=== PATIENT | female | born 1935 | race Caucasian/White ===

== ENCOUNTER 2017-12-21 11:40 | Day surgery (SDC) | payer MEDICARE, OTHER ==
[~2017-12-21] VITALS: Ht 152.4 cm; Wt 86.7 kg
[~2017-12-21 11:40] MED LIST: ALBU90OI6 INH; ALBU90OI61 INH; ALPR.25 PO; ALTACE; ANORO ELLIPTA1 EACH; BENAML10/5 PO; BUDE6HFA INH; CALCIT950 PO; CALCIUM 600 MG1 EACH; Colace100 MG PO; Cyclobenzaprine5 MG PO; DIAZ5 PO; DIAZIDE; DOCU100 PO; ESCI10 PO; FISH OIL; FISH1000 PO; FLAXSEED340 GM; Ferrous Sulfat325 MG PO; Ginger250 MG; HYDACE5 PO; HYDR1TAB94 PO; LEVSOD50; LOPE2C PO; LOSA50 PO; MECL25 PO; MULVITMIND PO; OXYACE5T PO; PROM25 PO; RXHYDACE PO; SPIR25; TORSE20; TRAZ50 PO; TRIHYD253A PO; TRIHYD253B PO; WARF4 PO; WARF5 PO; [UNRECOGNIZED DRUG - CODE]
== END 2017-12-21 14:00 | disposition home or self-care (01) ==
LOC: ORSCSDS 11:40
PROVIDERS: Internal Medicine Gastroenterology
PROC: 0DB58ZX Excision of Esophagus, Via Natural or Artificial Opening Endoscopic, Diagnostic (ICD-10-PCS; principal; 2017-12-21 13:00)
DX: K22.70 Barrett's esophagus without dysplasia (principal); K44.9 Diaphragmatic hernia without obstruction or gangrene; K22.2 Esophageal obstruction; G47.33 Obstructive sleep apnea (adult) (pediatric); J44.9 Chronic obstructive pulmonary disease, unspecified; E03.9 Hypothyroidism, unspecified; E78.5 Hyperlipidemia, unspecified; F41.8 Other specified anxiety disorders; I10 Essential (primary) hypertension; Z86.718 Personal history of other venous thrombosis and embolism; Z79.01 Long term (current) use of anticoagulants; Z79.899 Other long term (current) drug therapy; E66.9 Obesity, unspecified; Z68.36 Body mass index [BMI] 36.0-36.9, adult
CPT/HCPCS: 88305; J7120

== ENCOUNTER → 2018-03-21 | Outpatient (CLI) | payer MEDICARE, OTHER ==
[2018-03-21 12:31] LABS: BASOPHILS ABSOLUTE AUTO 0.03 K/mm3 (0.00-0.23); BASOPHILS PERCENT AUTO 1 % (0-2); EOSINOPHILS ABSOLUTE AUTO 0.11 K/mm3 (0.00-0.68); EOSINOPHILS PERCENT AUTO 2 % (0-6); Hematocrit 39.6 % (33.0-51.0); Hemoglobin 13.3 g/dL (11.5-16.0); IMMATURE GRAN ABSOLUTE AUTO 0.01 K/mm3 (0.00-0.10); IMMATURE GRAN PERCENT AUTO 0 % (0-1); LYMPHOCYTES ABSOLUTE AUTO 1.82 K/mm3 (0.84-5.20); LYMPHOCYTES PERCENT AUTO 29 % (21-46); MONOCYTES ABSOLUTE AUTO 0.67 K/mm3 (0.16-1.47); MONOCYTES PERCENT AUTO 11 % (4-13); Mean Corpuscular HGB 29.6 pg (26.0-34.0); Mean Corpuscular HGB Conc 33.6 g/dL (31.5-36.5); Mean Corpuscular Volume 88 fL (80-100); Mean Platelet Volume 9.4 fL (9.1-12.4); NEUTROPHILS ABSOLUTE AUTO 3.69 K/mm3 (1.96-9.15); NEUTROPHILS PERCENT AUTO 58 % (41-73); Platelet Count 378 K/mm3 (150-400); RDW Coefficient Variation 14.7 % (11.7-14.2); RDW Standard Deviation 46.9 fL (35.1-46.3); Red Blood Cell Count 4.49 M/mm3 (3.80-5.20); White Blood Cell Count 6.33 K/mm3 (4.00-11.30)
[2018-03-21 12:44] LABS: Alanine Aminotransfer (ALT/SGP 24 U/L (12-78); Albumin, Blood 3.5 g/dL (3.4-5.0); Albumin/Globulin Ratio 0.9 (0.8-1.8); Alk Phos 74 U/L (40-126); Anion Gap 8 mmol/L (6-16); Aspartate Aminotrans (AST/SGOT 25 U/L (12-37); Bilirubin, Total 0.7 mg/dL (0.1-1.0); Blood Urea Nitrogen 18 mg/dL (8-24); CO2, Blood 32 mmol/L (21-32); Calcium, Blood 8.7 mg/dL (8.5-10.1); Chloride, Blood 102 mmol/L (98-108); Glomerular Filtration Rate >60 (60-); Glucose, Blood 94 mg/dL (70-99); Potassium, Blood 3.3 mmol/L (3.5-5.5); Sodium, Blood 142 mmol/L (136-145); Total Protein, Blood 7.5 g/dL (6.4-8.2)
[2018-03-21 13:02] LABS: International Normalized Ratio 2.06; Prothrombin Time Results 21.9 Sec (9.7-11.5)
== END | disposition home or self-care (01) ==
LOC: LAB EV 12:24 → LAB SHORT 12:24
PROVIDERS: Family Medicine
DX: K92.2 Gastrointestinal hemorrhage, unspecified (principal); Z86.718 Personal history of other venous thrombosis and embolism
CPT/HCPCS: 80053; 85025; 85610

== ENCOUNTER → 2018-05-08 | Outpatient (CLI) | payer MEDICARE, OTHER ==
[2018-05-08 11:33] LABS: Stool Occult Bld Immuno 1 Negative (NEGATIVE); Stool Occult Bld Immuno 2 Negative (NEGATIVE)
== END | disposition home or self-care (01) ==
LOC: LAB 08:25 → LAB FUT 04-21 14:10
PROVIDERS: Internal Medicine Gastroenterology
DX: K92.1 Melena (principal); Z86.010 Personal history of colon polyps
CPT/HCPCS: 82274

== ENCOUNTER 2019-08-04 08:21 | Emergency (ER) | payer MEDICARE ==
[~2019-08-04] VITALS: Ht 152.4 cm; Wt 78.9 kg
[2019-08-04 08:46] LABS: Source, Urine Clean Catch
[2019-08-04 08:51] LABS: Bilirubin, Urine Neg (Neg); Blood, Urine 5+ (Neg); Color, Urine Red (P-Yellow); Glucose Qualitative, Urine Neg (Neg); Ketones, Urine 1+ (Neg); Leukocyte Esterase, Urine 3+ (Neg); Nitrite, Urine Neg (Neg); Protein, Urine 3+ (Neg); Urobilinogen, Urine NORM (Normal)
[2019-08-04 09:02] LABS: BASOPHILS ABSOLUTE AUTO 0.03 K/mm3 (0.00-0.23); BASOPHILS PERCENT AUTO 0 % (0-2); EOSINOPHILS ABSOLUTE AUTO 0.13 K/mm3 (0.00-0.68); EOSINOPHILS PERCENT AUTO 2 % (0-6); Hematocrit 43.6 % (33.0-51.0); Hemoglobin 14.8 g/dL (11.5-16.0); IMMATURE GRAN ABSOLUTE AUTO 0.04 K/mm3 (0.00-0.10); IMMATURE GRAN PERCENT AUTO 1 % (0-1); LYMPHOCYTES PERCENT AUTO 15 % (21-46); MONOCYTES ABSOLUTE AUTO 1.04 K/mm3 (0.16-1.47); MONOCYTES PERCENT AUTO 13 % (4-13); Mean Corpuscular HGB 31.2 pg (26.0-34.0); Mean Corpuscular HGB Conc 33.9 g/dL (31.5-36.5); Mean Corpuscular Volume 92 fL (80-100); Mean Platelet Volume 8.8 fL (9.1-12.4); NEUTROPHILS ABSOLUTE AUTO 5.85 K/mm3 (1.96-9.15); NEUTROPHILS PERCENT AUTO 71 % (41-73); Platelet Count 353 K/mm3 (150-400); RDW Coefficient Variation 13.9 % (11.7-14.2); Red Blood Cell Count 4.75 M/mm3 (3.80-5.20); White Blood Cell Count 8.29 K/mm3 (4.00-11.30)
[2019-08-04 09:19] LABS: Anion Gap 5 mmol/L (6-16); Blood Urea Nitrogen 28 mg/dL (8-24); Bun/Creatinine Ratio 29.9 (12.0-20.0); CO2, Blood 28 mmol/L (21-32); Calcium, Blood 8.8 mg/dL (8.5-10.1); Chloride, Blood 102 mmol/L (98-108); Creatinine, Blood 0.94 mg/dL (0.40-1.00); Glomerular Filtration Rate >60 (60-); Glucose, Blood 96 mg/dL (70-99); Sodium, Blood 135 mmol/L (136-145)
[2019-08-04 09:48] LABS: International Normalized Ratio 3.37
[2019-08-04 10:03] LABS: Appearance, Urine Bloody (Clear); Red Blood Cells, Urine TNTC /hpf (0-2)
[2019-08-04 10:04] LABS: Bacteria Rare /hpf; Squamous Epithelial Cells Not Seen /hpf (Few)
[2019-08-04] MEDS ORDERED: CEPH500 PO (10:21)
== END 2019-08-04 10:46 | disposition home or self-care (01) ==
LOC: ER 08:21
PROVIDERS: Emergency Medicine
DX: N30.91 Cystitis, unspecified with hematuria (principal); R79.1 Abnormal coagulation profile; I11.0 Hypertensive heart disease with heart failure; I50.9 Heart failure, unspecified; Z86.73 Personal history of transient ischemic attack (TIA), and cerebral infarction without residual deficits; Z86.718 Personal history of other venous thrombosis and embolism; Z86.711 Personal history of pulmonary embolism; Z88.1 Allergy status to other antibiotic agents; Z88.8 Allergy status to other drugs, medicaments and biological substances; Z79.899 Other long term (current) drug therapy
CPT/HCPCS: 36415; 80048; 81001; 85025; 85610; 87077; 87086; 87186; 99284

== ENCOUNTER 2019-08-17 01:00 | Observation (INO) | payer MEDICARE ==
[~2019-08-17] VITALS: Ht 152.4 cm; Wt 78.9 kg
[~2019-08-17 01:00] MED LIST changes: +CEPH500 PO
[2019-08-17 01:41] LABS: BASOPHILS ABSOLUTE AUTO 0.03 K/mm3 (0.00-0.23); BASOPHILS PERCENT AUTO 0 % (0-2); EOSINOPHILS ABSOLUTE AUTO 0.02 K/mm3 (0.00-0.68); EOSINOPHILS PERCENT AUTO 0 % (0-6); Hematocrit 50.9 % (33.0-51.0); Hemoglobin 17.6 g/dL (11.5-16.0); IMMATURE GRAN ABSOLUTE AUTO 0.08 K/mm3 (0.00-0.10); IMMATURE GRAN PERCENT AUTO 1 % (0-1); LYMPHOCYTES ABSOLUTE AUTO 1.28 K/mm3 (0.84-5.20); LYMPHOCYTES PERCENT AUTO 16 % (21-46); MONOCYTES ABSOLUTE AUTO 0.53 K/mm3 (0.16-1.47); MONOCYTES PERCENT AUTO 7 % (4-13); Mean Corpuscular HGB 31.4 pg (26.0-34.0); Mean Corpuscular HGB Conc 34.6 g/dL (31.5-36.5); Mean Corpuscular Volume 91 fL (80-100); Mean Platelet Volume 8.8 fL (9.1-12.4); NEUTROPHILS ABSOLUTE AUTO 6.12 K/mm3 (1.96-9.15); NEUTROPHILS PERCENT AUTO 76 % (41-73); Platelet Count 413 K/mm3 (150-400); RDW Coefficient Variation 13.4 % (11.7-14.2); RDW Standard Deviation 45.9 fL (35.1-46.3); White Blood Cell Count 8.06 K/mm3 (4.00-11.30)
[2019-08-17 01:51] LABS: Albumin, Blood 4.3 g/dL (3.4-5.0); Bilirubin, Total 0.6 mg/dL (0.1-1.0); Bun/Creatinine Ratio 25.4 (12.0-20.0); Calcium, Blood 9.3 mg/dL (8.5-10.1); Creatinine, Blood 1.85 mg/dL (0.40-1.00); Globulin, Blood 4.4 g/dL (2.2-4.0); Potassium, Blood 3.9 mmol/L (3.5-5.5); Total Protein, Blood 8.7 g/dL (6.4-8.2)
[2019-08-17 01:53] LABS: International Normalized Ratio 2.43; Prothrombin Time Results 23.8 Sec (9.7-11.5)
[2019-08-17 03:09] LABS: Source, Urine Clean Catch
[2019-08-17 03:24] LABS: Bilirubin, Urine Neg (Neg); Blood, Urine Neg (Neg); Glucose Qualitative, Urine Neg (Neg); Ketones, Urine Neg (Neg); Leukocyte Esterase, Urine Neg (Neg); Nitrite, Urine Neg (Neg); Protein, Urine Neg (Neg); Specific Gravity, Urine 1.005 (1.003-1.022); Urobilinogen, Urine NORM (Normal)
[2019-08-17 03:26] LABS: Appearance, Urine Clear (Clear); Color, Urine Yellow (P-Yellow)
--- NOTE | 2019-08-17 08:56 | NUR ---
PARTIAL ECHOCARDIOGRAM COMPLETE
--- NOTE | 2019-08-17 16:29 | NUR ---
SHIFT SUMMARY: PT ADMITTED FROM THE ED AT CHANGE OF SHIFT THIS MORNING, SHE WAS ASSISTED TO BED AND ORIENTED TO CALL LIGHT, ROOM AND NURSING STAFF. PT IS A/O X 4 AND DENIES PAIN. PT IS A X 1 ASSIST TO BSC FOR TOILETING. FAMILY HAS BEEN AT BEDSIDE ALL DAY ASSISTING PT. PT CALLS FOR HELP APPROPRIATELY AND IS ABLE TO MAKE HER NEEDS KNOWN.
--- NOTE | 2019-08-18 06:11 | NUR ---
SHIFT SUMMARY A/O, ABLE TO MAKE NEEDS KNOWN. COOPERATIVE WITH CARE. CALLS AND ANSWERS QUESTIONS APPRPORIATELY. NO C/O PAIN/DISCOMFORT. VSS/AFEBRILE. SBA TO BSC. IV FLUIDS COMPLETED. CPAP @ HS. APPEARED TO REST OFF AND ON T/O SHIFT. FAMILY VERY ATTENTIVE AND INVOLVED IN CARE. NO ACUTE CHANGES NOTED OVERNIGHT. WCTM. BED REMAINS IN LOWEST POSITION; ALARM ON. CALL LIGHT AND BELONGINGS WITHIN REACH. WCTM. REPORT TO ONCOMING RN.
[2019-08-18 06:33] LABS: BASOPHILS ABSOLUTE AUTO 0.04 K/mm3 (0.00-0.23); BASOPHILS PERCENT AUTO 1 % (0-2); EOSINOPHILS ABSOLUTE AUTO 0.06 K/mm3 (0.00-0.68); EOSINOPHILS PERCENT AUTO 1 % (0-6); Hematocrit 46.1 % (33.0-51.0); IMMATURE GRAN ABSOLUTE AUTO 0.03 K/mm3 (0.00-0.10); IMMATURE GRAN PERCENT AUTO 0 % (0-1); LYMPHOCYTES ABSOLUTE AUTO 0.91 K/mm3 (0.84-5.20); LYMPHOCYTES PERCENT AUTO 12 % (21-46); MONOCYTES ABSOLUTE AUTO 0.79 K/mm3 (0.16-1.47); MONOCYTES PERCENT AUTO 10 % (4-13); Mean Corpuscular HGB Conc 34.7 g/dL (31.5-36.5); Mean Corpuscular Volume 92 fL (80-100); Mean Platelet Volume 8.6 fL (9.1-12.4); NEUTROPHILS ABSOLUTE AUTO 5.91 K/mm3 (1.96-9.15); NEUTROPHILS PERCENT AUTO 76 % (41-73); Platelet Count 338 K/mm3 (150-400); RDW Coefficient Variation 13.7 % (11.7-14.2); RDW Standard Deviation 46.3 fL (35.1-46.3); White Blood Cell Count 7.74 K/mm3 (4.00-11.30)
[2019-08-18 06:51] LABS: Magnesium, Blood 2.2 mg/dL (1.6-2.4)
[2019-08-18 06:52] LABS: International Normalized Ratio 2.69; Prothrombin Time Results 26.1 Sec (9.7-11.5)
[2019-08-18 06:53] LABS: Albumin, Blood 3.2 g/dL (3.4-5.0); Albumin/Globulin Ratio 0.9 (0.8-1.8); Bun/Creatinine Ratio 33.7 (12.0-20.0); Calcium, Blood 8.8 mg/dL (8.5-10.1); Creatinine, Blood 1.01 mg/dL (0.40-1.00); Globulin, Blood 3.5 g/dL (2.2-4.0); Potassium, Blood 3.5 mmol/L (3.5-5.5)
[2019-08-18 06:56] LABS: Total Protein, Blood 6.7 g/dL (6.4-8.2)
--- NOTE | 2019-08-18 15:28 | NUR ---
SHIFT SUMMARY PT AWAKE DURING SHIFT REPORT. REQUESTED ASSIST TO GET TO BSC. 1P ASSIST WITH FWW. PT A LITTLE UNSTEADY WHEN FIRST GETTING UP. PLEASANT AND CO-OP. ADMITTED FOR COMPRESSION FX TO L1. DECLINED NEEDING PAIN MEDICATION. REQUESTED TYLENOL PRIOR TO D/C FOR C/O DINERO. DR MCCOLLUM NOTIFIED. NEW ORDERS RECEIVED. FRIEND AND NURSE EXTERN TO TO VISIT AND ASSIST PT AT D/C. IV TO RAC D/C'D WNL'S. PT WORKED WITH P/T PRIOR TO D/C WELL; ABLE TO WALK IN HALLS USING FWW AND SBA BY P/T. PT TO D/C TO HOME WITH H/H. PT TO SEE DR CLAIRE IN 1-2 WEEKS. PT REPORTED THAT SHE ALREADY HAD AN APPOINTMENT FOR TUESDAY. NO C/O AT D/C. DINERO RESOLVED WITH TYLENOL EARLIER.
== END 2019-08-18 14:42 | disposition home health service (06) ==
LOC: ER 01:00 → MEDS 01:01
PROVIDERS: Emergency Medicine; ADMIT Internal Medicine
DX: R55 Syncope and collapse (principal); S32.019A Unspecified fracture of first lumbar vertebra, initial encounter for closed fracture; N17.9 Acute kidney failure, unspecified; E86.0 Dehydration; N39.0 Urinary tract infection, site not specified; I13.0 Hypertensive heart and chronic kidney disease with heart failure and stage 1 through stage 4 chronic kidney disease, or unspecified chronic kidney disease; I50.9 Heart failure, unspecified; N18.3 Chronic kidney disease, stage 3 (moderate); E87.1 Hypo-osmolality and hyponatremia; E78.1 Pure hyperglyceridemia; I48.91 Unspecified atrial fibrillation; E78.00 Pure hypercholesterolemia, unspecified; I31.3 Pericardial effusion (noninflammatory); Z79.01 Long term (current) use of anticoagulants; Z88.8 Allergy status to other drugs, medicaments and biological substances; W18.30XA Fall on same level, unspecified, initial encounter; Z88.6 Allergy status to analgesic agent
CPT/HCPCS: 36415; 70450; 71260; 74177; 80053; 81003; 83690; 83735; 83880; 84484; 85025; 85610; 93005; 93010; 93308; 93321; 94640; 94760; 96361; 96374-59; 96376; 97110; 97162; 97166; 97530; 99285-25; A9270; A9270-GY; G0378; J2405; J7030; Q9967

== ENCOUNTER 2021-03-17 14:31 | Emergency (ER) | payer MEDICARE ==
[~2021-03-17] VITALS: Ht 152.4 cm; Wt 73.9 kg
[~2021-03-17 14:31] MED LIST changes: +BENZ100A PO
[2021-03-17 15:17] LABS: International Normalized Ratio 3.65; Prothrombin Time Results 36.6 Sec (9.7-11.5)
== END 2021-03-17 16:19 | disposition home or self-care (01) ==
LOC: ER 14:31
PROVIDERS: Physician Assistant
DX: S01.21XA Laceration without foreign body of nose, initial encounter (principal); I11.0 Hypertensive heart disease with heart failure; I50.9 Heart failure, unspecified; I48.91 Unspecified atrial fibrillation; Z88.6 Allergy status to analgesic agent; Z88.8 Allergy status to other drugs, medicaments and biological substances; Z79.899 Other long term (current) drug therapy; Z86.718 Personal history of other venous thrombosis and embolism; Z79.01 Long term (current) use of anticoagulants; W10.9XXA Fall (on) (from) unspecified stairs and steps, initial encounter
CPT/HCPCS: 36415; 70450; 70486; 85610; 99284-25

== ENCOUNTER → 2022-06-04 | Outpatient (CLI) | payer MEDICARE ==
[2022-06-04 15:10] LABS: Protein, Urine Quantitative <5.0 mg/dL (0.0-11.9)
== END | disposition home or self-care (01) ==
LOC: LAB 11:03 → LAB SHORT 11:03
PROVIDERS: Internal Medicine Nephrology
DX: N18.30 Chronic kidney disease, stage 3 unspecified (principal); D63.1 Anemia in chronic kidney disease; N25.81 Secondary hyperparathyroidism of renal origin; E55.9 Vitamin D deficiency, unspecified; E78.00 Pure hypercholesterolemia, unspecified; D50.9 Iron deficiency anemia, unspecified; D51.8 Other vitamin B12 deficiency anemias; D52.8 Other folate deficiency anemias; R76.9 Abnormal immunological finding in serum, unspecified; R94.5 Abnormal results of liver function studies; R94.6 Abnormal results of thyroid function studies
CPT/HCPCS: 81050; 82043; 82570; 84156

== ENCOUNTER → 2022-10-31 | Outpatient (CLI) | payer MEDICARE ==
[2022-11-01 14:02] LABS: Creatinine Urine 39.7 mg/dL (27.00-270.00); Microalbumin, Urine Quant. 14.7 mg/L (0.000-20.000); Protein, Urine Quantitative 6.1 mg/dL (0.0-11.9)
== END | disposition home or self-care (01) ==
LOC: LAB SHORT 03:00
PROVIDERS: Internal Medicine Nephrology
DX: N18.30 Chronic kidney disease, stage 3 unspecified (principal); D63.1 Anemia in chronic kidney disease; N25.81 Secondary hyperparathyroidism of renal origin; E55.9 Vitamin D deficiency, unspecified; E78.00 Pure hypercholesterolemia, unspecified; D51.8 Other vitamin B12 deficiency anemias; D52.9 Folate deficiency anemia, unspecified; D50.9 Iron deficiency anemia, unspecified; R94.6 Abnormal results of thyroid function studies; R94.5 Abnormal results of liver function studies; R76.9 Abnormal immunological finding in serum, unspecified; R73.09 Other abnormal glucose
CPT/HCPCS: 81050; 82043; 82570; 84156; 86335

== ENCOUNTER 2023-07-14 17:14 | Emergency (ER) | payer MEDICARE ==
[~2023-07-14] VITALS: Ht 144.8 cm; Wt 70.8 kg
[2023-07-14 17:42] LABS: BASOPHILS ABSOLUTE AUTO 0.04 K/mm3 (0.00-0.23); BASOPHILS PERCENT AUTO 1 % (0-2); EOSINOPHILS ABSOLUTE AUTO 0.09 K/mm3 (0.00-0.68); EOSINOPHILS PERCENT AUTO 1 % (0-6); Hematocrit 47.6 % (33.0-51.0); Hemoglobin 16.1 g/dL (11.5-16.0); IMMATURE GRAN ABSOLUTE AUTO 0.02 K/mm3 (0.00-0.10); IMMATURE GRAN PERCENT AUTO 0 % (0-1); LYMPHOCYTES ABSOLUTE AUTO 1.96 K/mm3 (0.84-5.20); LYMPHOCYTES PERCENT AUTO 26 % (21-46); MONOCYTES ABSOLUTE AUTO 0.86 K/mm3 (0.16-1.47); MONOCYTES PERCENT AUTO 11 % (4-13); Mean Corpuscular HGB Conc 33.8 g/dL (31.5-36.5); Mean Corpuscular Volume 92 fL (80-100); Mean Platelet Volume 9.1 fL (9.1-12.4); NEUTROPHILS ABSOLUTE AUTO 4.61 K/mm3 (1.96-9.15); NEUTROPHILS PERCENT AUTO 61 % (41-73); Platelet Count 330 K/mm3 (150-400); RDW Coefficient Variation 14.2 % (11.7-14.2); RDW Standard Deviation 48.2 fL (35.1-46.3); White Blood Cell Count 7.58 K/mm3 (4.00-11.30)
[2023-07-14 17:56] LABS: International Normalized Ratio 1.77
[2023-07-14 18:01] LABS: Bilirubin, Total 0.8 mg/dL (0.1-1.0); Bun/Creatinine Ratio 29.5 (12.0-20.0); Calcium, Blood 9.3 mg/dL (8.5-10.1); Creatinine, Blood 1.05 mg/dL (0.40-1.00)
[2023-07-14 19:30] VITALS: BP 121/84
== END 2023-07-14 20:06 | disposition home or self-care (01) ==
LOC: ER 17:14
PROVIDERS: Physician Assistant
DX: R19.5 Other fecal abnormalities (principal); R79.1 Abnormal coagulation profile; Z88.8 Allergy status to other drugs, medicaments and biological substances; Z79.899 Other long term (current) drug therapy; Z79.01 Long term (current) use of anticoagulants; I50.9 Heart failure, unspecified; I11.0 Hypertensive heart disease with heart failure; I48.91 Unspecified atrial fibrillation
CPT/HCPCS: 80053; 85025; 85610; 99284

== ENCOUNTER → 2023-10-17 | Outpatient (CLI) | payer MEDICARE | LOC: LAB 15:26 → LAB SHORT 15:26 | DX: N39.0 Urinary tract infection, site not specified (principal) | CPT/HCPCS: 87077; 87086; 87186 ==

== ENCOUNTER 2023-12-14 13:54 | Inpatient (IN) | payer MEDICARE ==
[~2023-12-14] VITALS: Ht 139.7 cm; Wt 69.1 kg
[~2023-12-14 13:54] MED LIST changes: +EUTHYROX50 MCG PO; -LEVSOD50; +SPIR50 PO; -TORSE20; +WARF1 PO
[2023-12-14 14:33] LABS: BASOPHILS ABSOLUTE AUTO 0.04 K/mm3 (0.00-0.23); BASOPHILS PERCENT AUTO 0 % (0-2); EOSINOPHILS ABSOLUTE AUTO 0.01 K/mm3 (0.00-0.68); EOSINOPHILS PERCENT AUTO 0 % (0-6); Hematocrit 46.4 % (33.0-51.0); Hemoglobin 15.7 g/dL (11.5-16.0); IMMATURE GRAN ABSOLUTE AUTO 0.12 K/mm3 (0.00-0.10); IMMATURE GRAN PERCENT AUTO 1 % (0-1); LYMPHOCYTES ABSOLUTE AUTO 0.89 K/mm3 (0.84-5.20); LYMPHOCYTES PERCENT AUTO 7 % (21-46); MONOCYTES ABSOLUTE AUTO 0.75 K/mm3 (0.16-1.47); MONOCYTES PERCENT AUTO 6 % (4-13); Mean Corpuscular HGB 30.3 pg (26.0-34.0); Mean Corpuscular HGB Conc 33.8 g/dL (31.5-36.5); Mean Corpuscular Volume 90 fL (80-100); Mean Platelet Volume 8.8 fL (9.1-12.4); NEUTROPHILS ABSOLUTE AUTO 11.86 K/mm3 (1.96-9.15); NEUTROPHILS PERCENT AUTO 87 % (41-73); Platelet Count 304 K/mm3 (150-400); RDW Coefficient Variation 13.2 % (11.7-14.2); RDW Standard Deviation 43.4 fL (35.1-46.3); Red Blood Cell Count 5.18 M/mm3 (3.80-5.20); White Blood Cell Count 13.67 K/mm3 (4.00-11.30)
[2023-12-14 14:48] LABS: International Normalized Ratio 3.41; Prothrombin Time Results 33.4 Sec (9.7-11.5)
[2023-12-14 14:52] LABS: Albumin, Blood 3.6 g/dL (3.4-5.0); Albumin/Globulin Ratio 0.9 (0.8-1.8); Bun/Creatinine Ratio 30.2 (12.0-20.0); Calcium, Blood 9.1 mg/dL (8.5-10.1); Creatinine, Blood 0.89 mg/dL (0.40-1.00); Potassium, Blood 3.8 mmol/L (3.5-5.5); Total Protein, Blood 7.6 g/dL (6.4-8.2)
[2023-12-14] MEDS ORDERED: DIGOX125 MC1 PO (18:56)
[2023-12-14] MEDS ORDERED: DILTIAZEM 24HR240 M3 PO (18:57)
[2023-12-14] MEDS ORDERED: JARDIANCE10 MG PO (19:03)
[2023-12-14] MEDS ORDERED: OXYC5 PO (19:05)
[2023-12-14] MEDS ORDERED: SOAANZ20 M3 PO (19:07)
[2023-12-14] MEDS ORDERED: CIPR250 PO (19:08)
[2023-12-14] MEDS ORDERED: Pyridium100 MG PO (19:09)
[2023-12-14] MEDS ORDERED: TIZANIDINE HCL213 PO (19:11)
[2023-12-14] MEDS ORDERED: BENZ100A PO ×2 (19:12→19:13)
[2023-12-14] MEDS ORDERED: BREZTRI AEROS10.7 GM IH (19:15)
[2023-12-14] MEDS ORDERED: ALBU90OI INH (20:45)
[2023-12-14 21:27] VITALS: BP 122/77
[2023-12-14] MEDS ORDERED: BREZTRI AEROS10.7 GM INH (21:30)
[2023-12-15 03:04] VITALS: BP 120/87
[2023-12-15 06:07] LABS: International Normalized Ratio 2.94
[2023-12-15 07:40] VITALS: BP 121/88
[2023-12-15 15:42] VITALS: BP 119/73
--- NOTE | 2023-12-15 16:05 | NUR ---
SHIFT SUMMARY; PATIENT WORKS WITH PT TODAY. IS ABLE TO SIT ON EDGE OF BED WITH ASSIST. SHE IS MEDICATED PRIOR TO SITTING ON EDGE OF BED WITH 5MG OXYCODONE FOR PAIN. SHE SIDESTEPS 3 STEPS WITH ASSIST AND THEN RETURNS TO BED WITH ASSIST. ALEX IS VERY PAINFULL AT THAT TIME BUT SAYS SHE WILL TRY AGAIN LATER THIS AFTERNOON. SHE IS VERY MOTIVATED TO GET UP AND RETURN TO HER HOME ACTIVITIES. VITAL SIGNS ARE STABLE TODAY AND NO ACUTE CHANGES IN CONDITION NOTED.
[2023-12-15] MEDS ORDERED: THERA-D2000 UNIT PO (16:37)
[2023-12-15] MEDS ORDERED: FAMO20 PO (16:40)
[2023-12-15 19:02] VITALS: BP 126/84
--- NOTE | 2023-12-16 03:03 | NUR ---
PEDIATRIC NURSE SUMMARY VSS. HAD VISITORS AT SHIFT COMMNCE. CHEERFUL AFFECT. PUREWICK IN USE. O2 PER NC AT 1-2 L/MIN UNTIL HS, THEN CHANGED OVER TO CPAP APPLIED BY RT. HOB ELEVATED. PAIN MEDS FOR HIP PAIN - SEE MAR FOR DETAILS. HAS BEEN RESTING QUIETLY WITH FEW INTERRUPTIONS SINCE. CALL LIGHT IN REACH. RAILS UP X 2 FOR SAFETY. WILL CONTINUE TO MONITOR
[2023-12-16 03:08] VITALS: BP 136/90
[2023-12-16 06:10] LABS: BASOPHILS ABSOLUTE AUTO 0.04 K/mm3 (0.00-0.23); BASOPHILS PERCENT AUTO 0 % (0-2); EOSINOPHILS ABSOLUTE AUTO 0.15 K/mm3 (0.00-0.68); EOSINOPHILS PERCENT AUTO 1 % (0-6); Hematocrit 43.2 % (33.0-51.0); Hemoglobin 14.3 g/dL (11.5-16.0); IMMATURE GRAN ABSOLUTE AUTO 0.11 K/mm3 (0.00-0.10); IMMATURE GRAN PERCENT AUTO 1 % (0-1); LYMPHOCYTES ABSOLUTE AUTO 1.05 K/mm3 (0.84-5.20); LYMPHOCYTES PERCENT AUTO 9 % (21-46); MONOCYTES PERCENT AUTO 12 % (4-13); Mean Corpuscular HGB 30.6 pg (26.0-34.0); Mean Corpuscular HGB Conc 33.1 g/dL (31.5-36.5); Mean Corpuscular Volume 93 fL (80-100); Mean Platelet Volume 8.9 fL (9.1-12.4); NEUTROPHILS PERCENT AUTO 76 % (41-73); Platelet Count 271 K/mm3 (150-400); RDW Coefficient Variation 13.4 % (11.7-14.2); Red Blood Cell Count 4.67 M/mm3 (3.80-5.20); White Blood Cell Count 11.25 K/mm3 (4.00-11.30)
[2023-12-16 06:23] LABS: International Normalized Ratio 2.29; Prothrombin Time Results 22.9 Sec (9.7-11.5)
[2023-12-16 06:51] LABS: Bun/Creatinine Ratio 16.5 (12.0-20.0); Calcium, Blood 8.7 mg/dL (8.5-10.1); Creatinine, Blood 0.79 mg/dL (0.40-1.00); Potassium, Blood 4.6 mmol/L (3.5-5.5)
[2023-12-16 07:47] VITALS: BP 109/88
[2023-12-16 15:36] VITALS: BP 141/86
--- NOTE | 2023-12-16 19:37 | NUR ---
SHIFT SUMMARY: NO ACUTE CHANGES IN PATIENT CONDITION TODAY. SHE DID WORK WITH PT TODAY. MEDICATED FOR PAIN PRIOR TO WORKING WITH LOU FROM PT. PT TOLERATED WELL. SHE WILL GO TO SNF IN AM.
[2023-12-16 20:18] VITALS: BP 113/75
[2023-12-17 02:20] VITALS: BP 128/95
--- NOTE | 2023-12-17 04:21 | NUR ---
SHIFT SUMMARY. PATIENT IS AOX4. PATIENT IS PLEASANT AND ABLE TO MAKE HER NEEDS KNOWN. PATIENT PAIN ASSESSED AND MEDICATED PER EMAR. NO ACUTE EVENTS OVERNIGHT. PATIENT SLEPT WELL W/ RESPIRATIONS EQUAL AND UNLABORED. PLAN IS TO DISCHARGE TODAY TO SNF FOR REHAB. BED IS LOCKED IN THE LOWEST POSITION WITH CALL LIGHT IN REACH. NO S/S OF DISTRESS NOTED AT THIS TIME. CARE ONGOING.
[2023-12-17 06:20] LABS: International Normalized Ratio 1.91; Prothrombin Time Results 19.3 Sec (9.7-11.5)
[2023-12-17 06:25] LABS: Hemoglobin 14.7 g/dL (11.5-16.0); Mean Corpuscular HGB 30.4 pg (26.0-34.0); Mean Corpuscular HGB Conc 32.7 g/dL (31.5-36.5); Mean Corpuscular Volume 93 fL (80-100); Mean Platelet Volume 9.1 fL (9.1-12.4); Platelet Count 266 K/mm3 (150-400); RDW Coefficient Variation 13.5 % (11.7-14.2); RDW Standard Deviation 46.5 fL (35.1-46.3); Red Blood Cell Count 4.84 M/mm3 (3.80-5.20); White Blood Cell Count 10.09 K/mm3 (4.00-11.30)
[2023-12-17 06:33] LABS: Bun/Creatinine Ratio 16.4 (12.0-20.0); Calcium, Blood 8.5 mg/dL (8.5-10.1); Creatinine, Blood 0.79 mg/dL (0.40-1.00); Potassium, Blood 4.5 mmol/L (3.5-5.5)
[2023-12-17 07:58] VITALS: BP 134/107
--- NOTE | 2023-12-17 09:00 | NUR ---
pt laying in bed awake, a/ox4, occ forgetful, lungs are clear dim in bases, resp even and unlabored, no cough noted, on 2 liters via n/c, sats 97%, placed her on r/a, hrr, no edema noted, ppp+2, cap refill <3 sec, vs stable, afebrile, piv site is clear and patent, btx4, abd flat soft nontender, voids via purwick at this time, skin c/w/d, maew, very painful to move, she reports no pain when not moving, goes to ten when she is. call light in reach.
[2023-12-17] MEDS ORDERED: DOCU100 PO (10:08)
[2023-12-17] MEDS ORDERED: Acetaminophen325 M1 PO (10:08)
[2023-12-17] MEDS ORDERED: MIRALAX17 GM PO (10:08)
--- NOTE | 2023-12-17 11:21 | NUR ---
premedicated pt for therapy as she states it is very painful for her to move. pt in good spirits, is concerned about rehab and cost. call light in reach.
[2023-12-17 15:32] LABS: Influenza A, PCR NEGATIVE (NEGATIVE); Influenza B, PCR NEGATIVE (NEGATIVE); Resp Syncytial Virus, PCR NEGATIVE (NEGATIVE); SARS-Cov-2 (COVID-19) PCR, MMC NEGATIVE (NEGATIVE)
--- NOTE | 2023-12-17 17:30 | NUR ---
pt is being tx to [facility], report was given to Cande FAUSTIN, iv removed intact dressing in clean gown, got her a snack prior to leaving, pkt given to delivery truck driver, all her belongings were taken by family. left via [place].
== END 2023-12-17 17:36 | DRG 552 ==
LOC: ER 13:54 → MEDS 20:58 → SURS 20:58 → MEDS 21:20
PROVIDERS: Emergency Medicine; Internal Medicine; Nurse Practitioner Acute Care; ADMIT Internal Medicine
PROC: 5A09357 Assistance with Respiratory Ventilation, Less than 24 Consecutive Hours, Continuous Positive Airway Pressure (ICD-10-PCS; principal; 2023-12-14)
DX: S32.110A Nondisplaced Zone I fracture of sacrum, initial encounter for closed fracture (principal); S32.511A Fracture of superior rim of right pubis, initial encounter for closed fracture; S32.591A Other specified fracture of right pubis, initial encounter for closed fracture; I13.0 Hypertensive heart and chronic kidney disease with heart failure and stage 1 through stage 4 chronic kidney disease, or unspecified chronic kidney disease; I50.32 Chronic diastolic (congestive) heart failure; I48.20 Chronic atrial fibrillation, unspecified; W08.XXXA Fall from other furniture, initial encounter; Y92.009 Unspecified place in unspecified non-institutional (private) residence as the place of occurrence of the external cause; E86.0 Dehydration; D72.829 Elevated white blood cell count, unspecified; R79.1 Abnormal coagulation profile; J44.9 Chronic obstructive pulmonary disease, unspecified; G47.33 Obstructive sleep apnea (adult) (pediatric); E03.9 Hypothyroidism, unspecified; F41.9 Anxiety disorder, unspecified; I27.20 Pulmonary hypertension, unspecified; I07.1 Rheumatic tricuspid insufficiency; N18.30 Chronic kidney disease, stage 3 unspecified; Z86.718 Personal history of other venous thrombosis and embolism; Z86.711 Personal history of pulmonary embolism; Z86.73 Personal history of transient ischemic attack (TIA), and cerebral infarction without residual deficits; Z88.6 Allergy status to analgesic agent; Z88.8 Allergy status to other drugs, medicaments and biological substances; Z79.890 Hormone replacement therapy; Z79.01 Long term (current) use of anticoagulants
CPT/HCPCS: 0241U; 36415; 72192; 73502; 80048; 80053; 85025; 85027; 85610; 94640; 94660; 94664; 94760; 94762; 96374; 97110; 97110-CQ; 97162; 97530; 99285-25; A9270; J2270; J2405; J3010; J7030

== ENCOUNTER → 2024-02-13 | Outpatient (CLI) | payer MEDICARE ==
[~2024-02-13] MED LIST changes: +ALBU90OI INH; +Acetaminophen325 M1 PO; +BREZTRI AEROS10.7 GM IH; +BREZTRI AEROS10.7 GM INH; +CIPR250 PO; +DIGOX125 MC1 PO; +DILTIAZEM 24HR240 M3 PO; +FAMO20 PO; +JARDIANCE10 MG PO; +MIRALAX17 GM PO; +OXYC5 PO; +Pyridium100 MG PO; +SOAANZ20 M3 PO; +THERA-D2000 UNIT PO; +TIZANIDINE HCL213 PO
[2024-02-13 15:51] LABS: Protein, Urine Quantitative <5.0 mg/dL (0.0-11.9)
== END ==
LOC: LAB SHORT 13:16 → LAB 13:16
PROVIDERS: Internal Medicine Nephrology
DX: N18.30 Chronic kidney disease, stage 3 unspecified (principal); D63.1 Anemia in chronic kidney disease; N25.81 Secondary hyperparathyroidism of renal origin; E55.9 Vitamin D deficiency, unspecified; E78.00 Pure hypercholesterolemia, unspecified; R76.9 Abnormal immunological finding in serum, unspecified; R73.09 Other abnormal glucose; R94.5 Abnormal results of liver function studies; R94.6 Abnormal results of thyroid function studies
CPT/HCPCS: 81050; 82043; 82570; 84156

== ENCOUNTER 2024-05-07 10:15 | Emergency (ER) | payer MEDICARE ==
[~2024-05-07] VITALS: Ht 139.7 cm; Wt 66.2 kg
[2024-05-07] MEDS ORDERED: Morphine Sulfate 4 MG/1 ML Injection IV ONE ×2 (10:30→12:50)
[2024-05-07 10:43] LABS: BASOPHILS ABSOLUTE AUTO 0.04 K/mm3 (0.00-0.23); BASOPHILS PERCENT AUTO 1 % (0-2); EOSINOPHILS PERCENT AUTO 2 % (0-6); Hematocrit 47.6 % (33.0-51.0); Hemoglobin 16.2 g/dL (11.5-16.0); IMMATURE GRAN ABSOLUTE AUTO 0.05 K/mm3 (0.00-0.10); IMMATURE GRAN PERCENT AUTO 1 % (0-1); LYMPHOCYTES ABSOLUTE AUTO 1.39 K/mm3 (0.84-5.20); LYMPHOCYTES PERCENT AUTO 20 % (21-46); MONOCYTES ABSOLUTE AUTO 0.71 K/mm3 (0.16-1.47); MONOCYTES PERCENT AUTO 10 % (4-13); Mean Corpuscular HGB 30.7 pg (26.0-34.0); Mean Corpuscular Volume 90 fL (80-100); Mean Platelet Volume 8.8 fL (9.1-12.4); NEUTROPHILS ABSOLUTE AUTO 4.59 K/mm3 (1.96-9.15); NEUTROPHILS PERCENT AUTO 67 % (41-73); Platelet Count 341 K/mm3 (150-400); RDW Coefficient Variation 14.7 % (11.7-14.2); RDW Standard Deviation 48.8 fL (35.1-46.3); Red Blood Cell Count 5.28 M/mm3 (3.80-5.20); White Blood Cell Count 6.88 K/mm3 (4.00-11.30)
[2024-05-07 11:00] LABS: International Normalized Ratio 2.61
[2024-05-07 11:01] LABS: Magnesium, Blood 2.4 mg/dL (1.6-2.4)
[2024-05-07 11:02] LABS: Bun/Creatinine Ratio 25.2 (12.0-20.0); Calcium, Blood 10.1 mg/dL (8.5-10.1); Creatinine, Blood 0.99 mg/dL (0.40-1.00); Potassium, Blood 3.7 mmol/L (3.5-5.5)
[2024-05-07] MEDS ORDERED: Famotidine 10 MG/ML 2ML Vial IV ONE ×2 (12:45→15:55)
[2024-05-07] MEDS ORDERED: Methocarbamol 500 MG Tab PO ONE (12:45)
[2024-05-07 14:44] LABS: Influenza A, PCR NEGATIVE (NEGATIVE); Influenza B, PCR NEGATIVE (NEGATIVE); Resp Syncytial Virus, PCR NEGATIVE (NEGATIVE); SARS-Cov-2 (COVID-19) PCR, MMC NEGATIVE (NEGATIVE)
[2024-05-07] MEDS ORDERED: Mag Hydrox/AL Hydrox/Simeth 30 ML UDC PO ONE (15:55)
[2024-05-07 16:04] LABS: Albumin, Blood 3.5 g/dL (3.4-5.0); Albumin/Globulin Ratio 0.9 (0.8-1.8); Bilirubin, Direct 0.6 mg/dL (0.0-0.3); Bilirubin, Total 1.6 mg/dL (0.1-1.0); Globulin, Blood 3.8 g/dL (2.2-4.0); Total Protein, Blood 7.3 g/dL (6.4-8.2)
[2024-05-07] MEDS ORDERED: PANT40 PO (16:27)
[2024-05-07] MEDS ORDERED: ONDA4ODT MM (16:27)
[2024-05-07] MEDS ORDERED: Ondansetron HCl 2 MG / ML 2ML Vial IV ONE (17:05)
[2024-05-07 17:16] VITALS: BP 142/80
== END 2024-05-07 17:37 | disposition home or self-care (01) ==
LOC: ER 10:15
PROVIDERS: Student in an Organized Health Care Education/Training Program
DX: K44.9 Diaphragmatic hernia without obstruction or gangrene (principal); K29.70 Gastritis, unspecified, without bleeding; J45.909 Unspecified asthma, uncomplicated; I13.0 Hypertensive heart and chronic kidney disease with heart failure and stage 1 through stage 4 chronic kidney disease, or unspecified chronic kidney disease; I50.9 Heart failure, unspecified; N18.30 Chronic kidney disease, stage 3 unspecified; I48.91 Unspecified atrial fibrillation; Z87.891 Personal history of nicotine dependence; Z79.01 Long term (current) use of anticoagulants; Z79.51 Long term (current) use of inhaled steroids; Z79.899 Other long term (current) drug therapy; Z88.8 Allergy status to other drugs, medicaments and biological substances; Z88.6 Allergy status to analgesic agent
CPT/HCPCS: 0241U; 71046; 74177; 80048; 80076; 83690; 83735; 83880; 84145; 84484; 85025; 85610; 93005; 93010; 96374-59; 96375; 96376; 99284-25; A9270; J2270; J2405; Q9967

== ENCOUNTER → 2024-11-15 | Outpatient (CLI) | payer MEDICARE ==
[~2024-11-15] MED LIST changes: +ONDA4ODT MM; +PANT40 PO
[2024-11-15 18:40] LABS: BASOPHILS ABSOLUTE AUTO 0.04 K/mm3 (0.00-0.23); BASOPHILS PERCENT AUTO 1 % (0-2); EOSINOPHILS ABSOLUTE AUTO 0.04 K/mm3 (0.00-0.68); EOSINOPHILS PERCENT AUTO 1 % (0-6); Hemoglobin 16.9 g/dL (11.5-16.0); IMMATURE GRAN ABSOLUTE AUTO 0.04 K/mm3 (0.00-0.10); IMMATURE GRAN PERCENT AUTO 1 % (0-1); LYMPHOCYTES ABSOLUTE AUTO 1.53 K/mm3 (0.84-5.20); LYMPHOCYTES PERCENT AUTO 19 % (21-46); MONOCYTES ABSOLUTE AUTO 0.84 K/mm3 (0.16-1.47); MONOCYTES PERCENT AUTO 10 % (4-13); Mean Corpuscular HGB 31.6 pg (26.0-34.0); Mean Corpuscular HGB Conc 34.5 g/dL (31.5-36.5); Mean Corpuscular Volume 92 fL (80-100); NEUTROPHILS PERCENT AUTO 70 % (41-73); Platelet Count 368 K/mm3 (150-400); RDW Coefficient Variation 14.2 % (11.7-14.2); RDW Standard Deviation 47.3 fL (35.1-46.3); Red Blood Cell Count 5.34 M/mm3 (3.80-5.20); White Blood Cell Count 8.29 K/mm3 (4.00-11.30)
== END ==
LOC: LAB SHORT 17:14 → LAB 17:14
PROVIDERS: Internal Medicine Hematology & Oncology
DX: E87.79 Other fluid overload (principal)
CPT/HCPCS: 85025

== ENCOUNTER → 2025-03-14 | Outpatient (CLI) | payer MEDICARE ==
[~2025-03-14] MED LIST changes: +MONT10T PO; +Prednisone10 MG PO
[2025-03-14 20:13] LABS: Albumin, Blood 3.9 g/dL (3.4-5.0); Albumin/Globulin Ratio 1.1 (0.8-1.8); Bilirubin, Total 0.9 mg/dL (0.1-1.0); Bun/Creatinine Ratio 43.8 (12.0-20.0); Calcium, Blood 8.7 mg/dL (8.5-10.1); Creatinine, Blood 0.8 mg/dL (0.40-1.00); Globulin, Blood 3.4 g/dL (2.2-4.0); Phosphorus, Blood 2.9 mg/dL (2.5-4.9); Potassium, Blood 4.4 mmol/L (3.5-5.5); Total Protein, Blood 7.3 g/dL (6.4-8.2)
== END ==
LOC: LAB SHORT 18:47 → LAB 18:47
PROVIDERS: Internal Medicine Hematology & Oncology
DX: D75.1 Secondary polycythemia (principal)
CPT/HCPCS: 80053; 84100

== ENCOUNTER 2025-03-19 13:50 | Emergency (ER) | payer MEDICARE ==
[~2025-03-19] VITALS: Ht 139.7 cm; Wt 56.2 kg
[~2025-03-19 13:50] MED LIST changes: -MONT10T PO; -Prednisone10 MG PO
[2025-03-19 14:42] LABS: BASOPHILS ABSOLUTE AUTO 0.01 K/mm3 (0.00-0.23); BASOPHILS PERCENT AUTO 0 % (0-2); EOSINOPHILS PERCENT AUTO 0 % (0-6); Hematocrit 50.8 % (33.0-51.0); Hemoglobin 17.2 g/dL (11.5-16.0); IMMATURE GRAN ABSOLUTE AUTO 0.08 K/mm3 (0.00-0.10); IMMATURE GRAN PERCENT AUTO 1 % (0-1); LYMPHOCYTES ABSOLUTE AUTO 0.78 K/mm3 (0.84-5.20); LYMPHOCYTES PERCENT AUTO 7 % (21-46); MONOCYTES ABSOLUTE AUTO 0.48 K/mm3 (0.16-1.47); MONOCYTES PERCENT AUTO 4 % (4-13); Mean Corpuscular HGB 30.9 pg (26.0-34.0); Mean Corpuscular HGB Conc 33.9 g/dL (31.5-36.5); Mean Corpuscular Volume 91 fL (80-100); Mean Platelet Volume 8.8 fL (9.1-12.4); NEUTROPHILS ABSOLUTE AUTO 9.98 K/mm3 (1.96-9.15); NEUTROPHILS PERCENT AUTO 88 % (41-73); Platelet Count 388 K/mm3 (150-400); RDW Coefficient Variation 15.2 % (11.7-14.2); RDW Standard Deviation 51.3 fL (35.1-46.3); Red Blood Cell Count 5.56 M/mm3 (3.80-5.20); White Blood Cell Count 11.33 K/mm3 (4.00-11.30)
[2025-03-19] MEDS ORDERED: MONT10T PO (14:42)
[2025-03-19] MEDS ORDERED: Prednisone10 MG PO (14:42)
[2025-03-19 15:19] LABS: Bilirubin, Total 1.5 mg/dL (0.1-1.0); Bun/Creatinine Ratio 35.8 (12.0-20.0); Calcium, Blood 8.8 mg/dL (8.5-10.1); Creatinine, Blood 0.75 mg/dL (0.40-1.00); Globulin, Blood 4.1 g/dL (2.2-4.0); Potassium, Blood 3.9 mmol/L (3.5-5.5); Total Protein, Blood 8.1 g/dL (6.4-8.2)
[2025-03-19] MEDS ORDERED: Methyl Salicylate/Menth/Camph 57 GM TUBE TOP ONE (16:05)
[2025-03-19] MEDS ORDERED: Sucralfate 1000MG / 10ML UD BTL PO ONE (16:05)
[2025-03-19] MEDS ORDERED: Acetaminophen 500 MG Tab PO ONE (16:05)
[2025-03-19 17:16] VITALS: BP 124/76
== END 2025-03-19 17:11 | disposition home or self-care (01) ==
LOC: ER 13:50
PROVIDERS: Physician Assistant
DX: K44.9 Diaphragmatic hernia without obstruction or gangrene (principal); R07.89 Other chest pain; I48.91 Unspecified atrial fibrillation; K21.9 Gastro-esophageal reflux disease without esophagitis; Z79.52 Long term (current) use of systemic steroids; Z79.01 Long term (current) use of anticoagulants; Z79.899 Other long term (current) drug therapy; Z88.1 Allergy status to other antibiotic agents; Z88.8 Allergy status to other drugs, medicaments and biological substances
CPT/HCPCS: 71046; 80053; 83690; 84484; 85025; 93005; 93010; 99284-25; A9270